=== PATIENT | female | born 1975 | race Caucasian/White ===

== ENCOUNTER 2018-01-30 12:43 | Emergency (ER) | END 2018-01-30 17:24 | disposition home or self-care (01) ==

== ENCOUNTER 2018-07-28 13:54 | Outpatient (CLI) | payer MEDICAID ==
[~2018-07-28] VITALS: Ht 154.9 cm; Wt 71.9 kg
[~2018-07-28 13:54] MED LIST: ACET500C5 PO; PREN-93 PO
[2018-07-28 14:23] VITALS: Ht 154.9 cm; Wt 71.9 kg
[2018-07-28 14:24] VITALS: BP 118/70; PULSE 64; RESP 18
--- NOTE | 2018-07-28 17:01 | TRIAGE ---
OB Triage Datetime Report Generated by CPN: 07/28/2018 17:01 Datetime: 07/28/2018 16:09 Bedside Blood Glucose: 108 Datetime: 07/28/2018 15:31 Labor Evaluation Frequency: x6 Monitor Mode: External Duration (sec)2399: 50-80 Quality: Mild Resting Tone [place]: Relaxed Contraction Comments: pt denies feeling UCs Heart Rate FHR Baseline Rate: 135 Monitor Mode: External US FHR Baseline Changes: No Baseline Change Variability: Moderate 6-25 bpm Accelerations: 15X15 Decelerations: None Category: Category I Datetime: 07/28/2018 14:31 Stage of : OB Triage Assessment Type: Triage Maternal Assessment Level of Consciousness: Fully Conscious DTR's/Clonus: DTRs 2+; No Clonus Headache: Denies Blurred Vision: No Respiratory Effort: Unlabored; Regular Rhythm; Equal Expansion Breath Sounds, Left: Clear and Equal Breath Sounds, Right: Clear and Equal Nausea/Vomiting: Denies RUQ Epigastric Pain: Denies Lower Extremities Edema: None Degree: None Upper Extremities Edema: None Degree: None Facial Edema: None Temperature Route: Oral Fall Risk Assessment History of Falling: (0) No Secondary Diagnosis: (0) No Ambulatory Aid: (0) Bedrest/Nurse Assist IV Therapy: (0) No Gait: (0) Normal/Bedrest/Immobile Mental Status: (0) Oriented to Own Ability Fall Score: 0 Fall Risk Score Definition: No Risk: No action required Labor Evaluation Frequency: x1 Monitor Mode: External Duration (sec)2399: 50 Quality: Mild Resting Tone [place]: Relaxed Contraction Comments: pt denies feeling UCS Heart Rate FHR Baseline Rate: 130 Monitor Mode: External US FHR Baseline Changes: No Baseline Change Variability: Moderate 6-25 bpm Accelerations: 15X15 Decelerations: None Category: Category I Pain Assessment Pain Scale: 0 Pain Presence: None/Denies Pain Type: N/A Datetime: 07/28/2018 14:30 EGA: 36.2 Datetime: 07/28/2018 14:29 Time of Arrival: 07/28/2018 14:01 Arrived By: Ambulatory Arrived From: Home Chief Complaint: NST, BPP Movement: Present Contractions: Denies/Absent Rupture of Membranes: Denies Vaginal Bleeding: None Vaginal Discharge: Denies Recent Sexual Intercouse: Denies Abdominal Trauma: Not Applicable Patient Complaints: None Time Provider Notified: 07/28/2018 15:35 Provider Notified: Dr Dillon Initial Plan: EFM, BENYT, BPP
--- NOTE | 2018-07-28 18:15 | PN ---
Triage Information Date/Time July 28, 2018 Reason for visit: Patient was sent from clinic for testing due to GDM Weeks of Gestation 36 weeks and 2 days /Para 6 para 4 Diabetes: none Diabetes management: diet controlled Hypertention: none Additional information 43-year-old with IUP at 36 weeks and 2 days and GDM A1 diet-controlled was sent to triage for testing. Patient denies any symptoms. Denies leaking vaginal bleeding or contractions or decreased movement. Denies any urinary symptoms. Objective Vital Signs Date Temp Pulse Resp B/P (MAP) Pulse Ox O2 O2 Flow FiO2 Time Delivery Rate 07/28/18 98.4 64 18 118/70 Room Air 14:24 (86) Heart Rate: 130's Heart Rate Comments Category 1 Contractions: 6-10 Minutes Apart Exam PROCEDURE: US Obstetrical, limited CLINICAL INDICATION: PTL, cervical length TECHNIQUE: Multiple real-time images were acquired of the patient's maternal abdomen utilizing a curved array transducer. Appearance: Alert and oriented x4 does not appear to be in any acute distress Size consent with date Abdomen soft, gravid NST: Category 1 BPP: 8/8 Contraction noted 6-10 minutes but patient has not been feeling Results/Medications Results 24 hrs Laboratory Tests Test 07/28/18 15:59 07/28/18 16:09 Urine Color YELLOW Urine Clarity CLEAR Urine pH 6.0 Urine Specific Ace 1.005 Urine Ketones NEGATIVE Urine Nitrite NEGATIVE Urine Bilirubin NEGATIVE Urine Urobilinogen NEGATIVE Urine Leukocyte Esterase NEGATIVE Urine Hemoglobin NEGATIVE Urine Glucose NEGATIVE Urine Total Protein NEGATIVE Bedside Glucose 108 Imaging Results PROCEDURE: US OB. CLINICAL INDICATION: Contractions TECHNIQUE: Multiple sonographic images of the pelvis were obtained. The images were reviewed on a PACS workstation. COMPARISON: No prior studies are available for comparison. FINDINGS: There is a single live intrauterine . cardiac activity is identified at a rate of 150 beats per minute. presentation is cephalic. Placenta is anterior grade II. There is no e vidence of placenta previa or abruption. Biophysical profile score is as follows: Breathing 2 Movements 2 Tone 2 Fluid volume 2 Amniotic fluid index = 12.1 cm Total biophysical profile score = 8/8 IMPRESSION: Biophysical profile score = 8/8 RPTAT: Disposition: Discharge Assessment/Plan IUP at 36 weeks and 2 days GDM A1 diet controlled testing reassuring Continue testing twice a week as recommended by her primary OB office No evidence of labor labor precautions and kick count discussed Follow-up with GDM diet Return to OB office within 48 hours after discharge from the hospital for arrangement for testing discussed Return to triage as needed CHRIS MINER MD Jul 28, 2018 18:15
== END 2018-07-28 16:57 | disposition home or self-care (01) ==
LOC: OBT 13:54 → L-D 13:59 → OBT 16:57
PROVIDERS: ATTEND Obstetrics & Gynecology
DX: O24.410 Gestational diabetes mellitus in pregnancy, diet controlled (principal); O09.523 Supervision of elderly multigravida, third trimester; Z3A.36 36 weeks gestation of pregnancy
CPT/HCPCS: 76818; 81003; 82962; Z7500; G0463